=== PATIENT | female | born 1950 | race Caucasian/White ===

== ENCOUNTER 2018-04-21 14:25 | Emergency (ER) | payer MEDICARE, OTHER ==
[~2018-04-21] VITALS: Ht 162.6 cm; Wt 49.4 kg
--- OUTSIDE RECORDS SUMMARY | 2018-04-21 14:30 | XMS REPORT ---
Author Author [facility] Address Unknown Phone Unavailable Care Team Providers Care Plant Breeder Name Role Phone Unavailable Unavailable Payers Payer Name Policy Type Policy Number Effective Date Expiration Date Problems This patient has no known problems. Allergies, Adverse Reactions, Alerts Allergy Name Allergy Type Status Severity Reaction(s) Onset Date Inactive Date Treating Clinician Comments Sulfa (Sulfonamide Antibiotics) DA Active MA 2018-01-25 00:00:00 iodine DA Active SV 2018-01-25 00:00:00 aloe vera DA Active SV 2018-01-25 00:00:00 levofloxacin DA Active U 2018-01-25 00:00:00 Sulfa (Sulfonamide Antibiotics) DA Active MA 2017-02-17 00:00:00 aloe vera DA Active SV 2017-02-17 00:00:00 levofloxacin DA Active U 2017-02-17 00:00:00 iodine DA Active SV 2016-09-04 00:00:00 Medications This patient has no known medications.
--- OUTSIDE RECORDS SUMMARY | 2018-04-21 14:30 | XMS REPORT | Summary of Care ---
Author Author SHANIA Blunt, ELMER Rivera Unknown Address Unknown Phone Unavailable Care Team Providers Care Law Clerk Name Role Phone Sharmin Bowen Unavailable Unavailable FAITH Blunt, PRABHJOT Unavailable Unavailable ASHLI FAIR MD Unavailable Unavailable SHANIA DICKENS NE, ELMER Valdez Unavailable Unavailable Unavailable Unavailable Functional Status Name Dates Details Functional status health issues are not documented Status: Name Dates Details Cognitive status health issues are not documented Status: Problems Name Dates Details Benign paroxysmal positional vertigo (386.11, H81.10) Status: Active Sensorineural hearing loss, bilateral (389.18, H90.3) Status: Active Excess wax in ear (380.4, H61.20) Status: Active 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 Active DULoxetine HCl - 30 MG Oral Capsule Delayed Release Particles TAKE 1 CAPSULE DAILY * Refills: 0 Active Furosemide 20 MG Oral Tablet TAKE 1 TABLET DAILY. * Refills: 0 Active Primidone 50 MG Oral Tablet 1pill pm and 0.5 pill am * Refills: 0 Active Oxycodone-Acetaminophen 10-325 MG Oral Tablet TAKE 1 TABLET 3 TIMES DAILY. * Refills: 0 Active Biotin 5000 MCG Oral Tablet TAKE 1 TABLET DAILY * Refills: 0 Active TraMADol HCl - 50 MG Oral Tablet TAKE 1 TABLET 3 TIMES DAILY. * Refills: 0 Active TraZODone HCl - 100 MG Oral Tablet TAKE 1 TABLET AT BEDTIME. * Refills: 0 Active TiZANidine HCl - 4 MG Oral Tablet TAKE 2 TABLET DAILY * Refills: 0 Active Vitamin D3 2000 UNIT Oral Capsule TAKE 1 CAPSULE DAILY * Refills: 0 Active Vitamin B12 TABS TAKE 1 TABLET DAILY DIRECTED. * Refills: 0 Active FentaNYL 50 MCG/HR Transdermal Patch 72 Hour APPLY 1 PATCH EVERY 3 DAYS * Refills: 0 Active Fludrocortisone Acetate 0.1 MG Oral Tablet TAKE 1 TABLET DAILY * Quantity: 30 Refills: 1 ALBASHAIREH M.D., PRABHJOT * Start : 27-May-2017 Active Allergies and Adverse Reactions Name Dates Details Levaquin TABS (Allergy) Status: Active Sulfa Drugs (Allergy) Status: Active Procedures Procedure Dates Details [N] 2D Echo complete, with Doppler [id number] Date: 27-May-2017 History of Oral Surgery Tooth Extraction Completed History of Appendectomy Completed History of Hysterectomy Completed Immunization Name Dates Details Immunizations not documented Family History Name Dates Details No pertinent family history Comments: Other Status: Active Social History Name Dates Details - Status: Name Dates Details Never smoker Vital Signs Date Test Result Details [id number] BP Systolic 100 mm[Hg] Status: Comments: Location: LUE; Position: Sitting BP Diastolic 71 mm[Hg] Status: Comments: Location: LUE; Position: Sitting Height 63 in Status: Weight 112 lb Status: Body Mass Index Calculated 19.84 kg/m2 Status: Body Surface Area Calculated 1.51 m2 Status: Heart Rate 82 /min Status: Comments: Location: L Radial; Physical Findings 29 Status: Comments: Waist Circumference Results Date Description Value Details Results not documented Plan of Care Name Dates Details Planned Observations [N] 2D Echo complete, with Doppler [id number] On: 08-Jul-2017 Intent Planned Goals not documented Planned Encounters Neurology Referral Appointment; CLIFTON GUERRA1 On: 08-Jul-2017 13:30 Appointment; ELMER JAUREGUI M.D. On: 08-Jul-2017 14:20 Appointment; GENESIS MARIA M.D. On: 23-Dec-2017 14:45 Instructions Name Dates Details Instructions not documented Encounters Appointment; EVA WARD M.D. Encounter Diagnosis: Problem not documented On: 04-Jun-2015 14:45 Appointment; ELMER JAUREGUI M.D. Encounter Diagnosis: Problem not documented On: 27-May-2017 14:30
--- OUTSIDE RECORDS SUMMARY | 2018-04-21 14:30 | XMS REPORT | Summary of Care ---
Author Author [facility] Organization [facility] Address Unknown Phone Unavailable Encounter JBAIER Marc(EDVIN) [id number] Date(s): 11/03/17 - 11/03/17 [facility] [address] [place] [address]- [facility] [phone] Discharge Disposition: Home or Self Care Attending Physician: Andrés Anderson MD Vital Signs Most recent to 1 oldest [Reference Range]: Height 162.56 cm (11/03/17 10:36 AM) Blood Pressure 99/71 mmHg [90-140/60-90 mmHg] (11/03/17 10:36 AM) Respiratory Rate 16 BRMIN [14-20 BRMIN] (11/03/17 10:36 AM) Peripheral Pulse 66 bpm Rate [60-100 bpm] (11/03/17 10:36 AM) Weight 51 kg (11/03/17 10:36 AM) Body Mass Index 19.3 m2 (11/03/17 10:36 AM) Problem List Condition Effective Dates Status Health Status Informant H/O multiple Resolved sclerosis(Confirmed) Low blood Resolved pressure(Confirmed) Allergies, Adverse Reactions, Alerts Substance Reaction Severity Status sulfa drugs Active Levaquin Active Medications acetaminophen-oxycodone 325 mg-10 mg oral tablet 2 tab, PO, Q6H, PRN for pain, 0 Refill(s) Start Date: 11/03/17 Stop Date: 11/10/17 Status: Ordered aspirin 81 mg tablet, enteric coated 81 mg=1 tab, PO, Daily, # 90 tab, 3 Refill(s) Start Date: 11/03/17 Status: Ordered DULoxetine 60 mg, PO, Daily, 0 Refill(s) Start Date: 11/03/17 Status: Ordered furosemide 20 mg oral tablet 20 mg=1 tab, PO, Daily, 0 Refill(s) Start Date: 11/03/17 Status: Ordered gabapentin 300 mg, PO, TID, 0 Refill(s) Start Date: 11/03/17 Status: Ordered GoLYTELY oral powder for reconstitution 240 mL, PO, Q10Min, # 82750 mL, 0 Refill(s), [id number] Start Date: 11/03/17 Stop Date: 11/05/17 Status: Ordered Home Medication See Instructions, Bi-Est/Progesterone, Refill(s) 0 Start Date: 11/03/17 Status: Ordered Home Medication Refill(s) 0 Start Date: 11/03/17 Status: Ordered Linzess 290 mcg oral capsule 290 microgram=1 cap, PO, Daily, 30 minutes prior to the first meal of the day, # 90 cap, 1 Refill(s), [id number] Start Date: 11/03/17 Stop Date: 05/02/18 Status: Ordered methadone 10 mg oral tablet 10 mg=1 tab, PO, Q8H, 0 Refill(s) Start Date: 11/03/17 Stop Date: 11/10/17 Status: Ordered MiraLax oral powder for reconstitution 17 gm, PO, BID, X 31 day, # 1054 gm, 1 Refill(s), [id number] Start Date: 11/03/17 Stop Date: 01/04/18 Status: Ordered Movantik 25 mg oral tablet 25 mg=1 tab, PO, QAM, # 90 tab, 1 Refill(s), [id number] Start Date: 11/03/17 Stop Date: 05/02/18 Status: Ordered pravastatin 20 mg oral tablet 20 mg=1 tab, PO, Daily, 0 Refill(s) Start Date: 11/03/17 Status: Ordered primidone 50 mg oral tablet 50 mg=1 tab, PO, TID, 0 Refill(s) Start Date: 11/03/17 Status: Ordered tizanidine 4 mg oral tablet 8 mg=2 tab, PO, Q8H, 0 Refill(s) Start Date: 11/03/17 Status: Ordered trazodone 100 mg oral tablet 100 mg=1 tab, PO, TID, 0 Refill(s) Start Date: 11/03/17 Status: Ordered Vitamin B12 0 Refill(s) Start Date: 11/03/17 Status: Ordered Vitamin D3 0 Refill(s) Start Date: 11/03/17 Status: Ordered Results No data available for this section Immunizations No data available for this section Procedures Procedure Date Related Diagnosis Body Site Status Cholecystectomy Completed Colonoscopy Completed Total hysterectomy Completed Social History Social History Type Response Alcohol Past Smoking Status Current some day smoker; Ready to change: Yes; Concerns about tobacco use in household: Yes; Exposure to Tobacco Smoke None; Cigarette Smoking Last 365 Days Yes; Reg Smoking Cessation Counseling Yes entered on: 11/03/17 Assessment and Plan No data available for this section
--- OUTSIDE RECORDS SUMMARY | 2018-04-21 14:30 | XMS REPORT | Summary of Care ---
Author Author [facility] Outpatient Imaging [facility] [place] Address Unknown Phone Unavailable Encounter HQ Monico(FIN) [id number] Date(s): 07/27/17 - 07/27/17 [facility] Outpatient Imaging [place] [address] [place] [phone] Encounter Diagnosis Low back pain (Final) - 07/31/17 Cervicalgia (Final) - Sacrococcygeal disorders, not elsewhere classified (Final) - Pain in joints of right hand (Final) - Pain in joints of left hand (Final) - Pain in right ankle and joints of right foot (Final) - Pain in left ankle and joints of left foot (Final) - Other intervertebral disc degeneration, lumbosacral region (Final) - Spondylosis without myelopathy or radiculopathy, lumbar region (Final) - Calcaneal spur, left foot (Final) - Calcaneal spur, right foot (Final) - Spinal stenosis, cervical region (Final) - Discharge Disposition: Home or Self Care Attending Physician: Anna Craft MD Vital Signs No data available for this section Problem List No data available for this section Allergies, Adverse Reactions, Alerts No data available for this section Medications No data available for this section Results No data available for this section Immunizations No data available for this section Procedures No data available for this section Social History No data available for this section Assessment and Plan No data available for this section
--- OUTSIDE RECORDS SUMMARY | 2018-04-21 14:30 | XMS REPORT | Summary of Care ---
Author Author [facility] [place] Organization [facility] [place] Address Unknown Phone Unavailable Encounter HQ Encntr_alias([facility]) [id number] Date(s): 08/14/17 - 08/14/17 [facility] - [place] [address] [place] [phone] Discharge Disposition: Home or Self Care Attending Physician: Deshawn Tejada MD Vital Signs No data available for [...]
--- OUTSIDE RECORDS SUMMARY | 2018-04-21 14:30 | XMS REPORT | Continuity of Care Document ---
Author Author Myra hernandes Organization Interface Address Unknown Phone Unavailable Problems Problem Status Onset Date Classification Date Reported Comments Source DSU- COLON SCREENING , CONSTIPATION Active 11/05/[address] [facility] NEW PT CONSULT Active 09/29/[address] [facility] Low back pain 08/01/2017 11/02/2017 NICOLA Hernandes M25.50 - PAIN IN UNSPECIFIED JOINT Active 07/27/2017 NICOLA Hernandes G35 - MULTIPLE SCLEROSIS Active 01/28/2016 NICOLA [place] Cervicalgia 11/02/2017 NICOLA Hernandes Sacrococcygeal disorders, not elsewhere classified 11/02/2017 [facility] Pain in joints of right hand 11/02/2017 [facility] [place] Pain in joints of left hand 11/02/2017 [facility] [place] Pain in right ankle and joints of right foot 11/02/2017 [facility] [place] Pain in left ankle and joints of left foot 11/02/2017 [facility] [place] Other intervertebral disc degeneration, lumbosacral region 11/02/2017 [facility] [place] Spondylosis without myelopathy or radiculopathy, lumbar region 11/02/2017 [facility] [place] Calcaneal spur, left foot 11/02/2017 [facility] Calcaneal spur, right foot 11/02/2017 [facility] [place] Spinal stenosis, cervical region 11/02/2017 [facility] H/O multiple sclerosis Resolved Problem 11/06/[address] [facility] Low blood pressure Resolved Problem 11/06/[address] [facility] MS Active Problem 06/10/2016 [facility] Pain of multiple sites Active Diagnosis 06/10/2016 [facility] MULTIPLE SCHLEROSIS Active [facility] MEDICAL EXAM W/ Active [facility] Medications Medication Details Route Status Patient Instructions Ordering Provider Order Date Source POLYETHYLENE GLYCOL 3350 142 MG/ML Oral Solution [Miralax] 17 gm, PO, BID, X 31 day, # 1054 gm, 1 Refill(s), Pharmacy: [facility]/pharmacy #[id number] Active 11/03/[address] [facility] GoLYTELY oral powder for reconstitution 240 mL, PO, Q10Min, # 89077 mL, 0 Refill(s), Pharmacy: [facility]/pharmacy #[id number] Active 11/03/[address] [facility] naloxegol 25 MG Oral Tablet [Movantik] 25 mg=1 tab, PO, QAM, # 90 tab, 1 Refill(s), Pharmacy: [facility]/pharmacy #[id number] Active 11/03/[address] [facility] linaclotide 0.29 MG Oral Capsule [Linzess] 290 microgram=1 cap, PO, Daily, 30 minutes prior to the first meal of the day, # 90 cap, 1 Refill(s), [id number] Active 11/03/[address] [facility] Trazodone Hydrochloride 100 MG Oral Tablet 100 mg=1 tab, PO, TID, 0 Refill(s) Active 11/03/[address] [facility] methadone 10 mg oral tablet 10 mg=1 tab, PO, Q8H, 0 Refill(s) Active 11/03/[address] [facility] Acetaminophen 325 MG / Oxycodone Hydrochloride 10 MG Oral Tablet 2 tab, PO, Q6H, PRN for pain, 0 Refill(s) Active 11/03/[address] [facility] Home Medication See Instructions, Bi-Est/Progesterone, Refill(s) 0 Active 11/03/[address] [facility] duloxetine 60 mg, PO, Daily, 0 Refill(s) Active 11/03/[address] [facility] gabapentin 300 mg, PO, TID, 0 Refill(s) Active 11/03/[address] [facility] primidone 50 mg oral tablet 50 mg=1 tab, PO, TID, 0 Refill(s) Active 11/03/[address] [facility] pravastatin 20 mg oral tablet 20 mg=1 tab, PO, Daily, 0 Refill(s) Active 11/03/[address] [facility] Furosemide 20 MG Oral Tablet 20 mg=1 tab, PO, Daily, 0 Refill(s) Active 11/03/[address] [facility] Vitamin B12 0 Refill(s) Active 11/03/[address] [facility] Aspirin 81 MG Enteric Coated Tablet 81 mg=1 tab, PO, Daily, # 90 tab, 3 Refill(s) Active 11/03/[address] [facility] Vitamin D3 0 Refill(s) Active 11/03/[address] [facility] tizanidine 4 mg oral tablet 8 mg=2 tab, PO, Q8H, 0 Refill(s) Active 11/03/[address] [facility] Ultram 1 tab(s) orally Active 50 mg orally tid prn [facility] 02/25/2016 [facility] carvedilol Unknown NA Active [facility] Lasix Unknown NA Active [facility] Allergies, Adverse Reactions, Alerts Substance Category Reaction Severity Reaction type Status Date Reported Comments Source Sulfa Adverse Reaction Info Not Available Adverse Reaction Active 02/25/2016 [facility] sulfa drugs Assertion Drug allergy Active [facility] Levaquin Assertion Drug allergy Active [facility] Immunizations Immunization Date Given Site Status Last Updated Comments Source Results Order Name Results Value Reference Range Date Interpretation Comments Source Brain w/wo contrast MRI Brain w/wo contrast MRI PATIENT NAME: KIMBERLY PARK : 1950; Age: 66 years y/o Female MR: [id number] STUDY: Brain w/wo contrast MRI 08/14/2017 11:38 AM CDT ORDERING PHYSICIAN: Deshawn Tejada MD CLINICAL INDICATION: R41.3 Other amnesia - R41.3 Other amnesia; COMPARISON: 04/18/2014 brain magnetic resonance imaging TECHNIQUE : Multiplanar imaging of the brain was obtained both prior to and after uncomplicated IV administration of 10 mL Dotarem. FINDINGS: BRAIN PARENCHYMA: There is no hemorrhage, mass lesion, extra axial collection, cerebral edema, or mass effect. Diffusion sequences are normal. Brain volume is age-appropriate without substantial volume loss. There are minimal, nonspecific signal abnormalities in the periventricular white matter and basal ganglia. There are no cortical signal abnormalities. There is bilateral pontine signal abnormality.The cerebellar tonsils are above foramen magnum. The pituitary gland is age-appropriate. There is no abnormal enhancement. CEREBELLOPONTINE REGIONS AND SKULL BASE: The cerebellopontine angles appear unremarkable. No skull base abnormality is seen. VENTRICLES/SULCI/CISTERNS: The ventricles are normal in size and configuration. The basal cisterns are patent. VISUALIZED VESSELS: Major intracranial flow voids are preserved. ORBITS, VISUALIZED PARANASAL SINUSES AND MASTOIDS: Paranasal sinuses are clear. The mastoid air cells are clear. No orbital pathology is seen. IMPRESSION: 1. No substantial cortical volume loss 2. Stable chronic microvascular ischemic changes most evident in the too 3. No substantial cortical volume loss 08/14/2017 - - Read by: Ruben Peck MD Dictated Date/time: 08/14/17 13:59 Electronically Signed by: Ruben Peck MD 08/14/17 15:55 FINAL REPORT [facility]ICOL[facility] [place] Pelvis AP DX Pelvis AP DX EXAM: XR PELVIS AP 1 VIEW DATE: 07/27/2017 11:46 AM CDT INDICATION: - M25.50 Pain in unspecified joint COMPARISON: None TECHNIQUE: AP pelvis -- single view. FINDINGS: No fracture, periosteal reaction, or erosions identified. Joint alignment is normal. Mild degenerative changes of the SI joints noted. Degenerative disc disease and facet arthropathy of the lower lumbar spine noted. Soft tissues are unremarkable. IMPRESSION: Mild degenerative changes of the SI joints. Degenerative disc disease and facet arthropathy of the lower lumbar spine. 07/27/2017 - - Read by: Delonte Oquendo MD Dictated Date/time: 07/27/17 12:30 Electronically Signed by: Delonte Oquendo MD 07/27/17 12:31 FINAL REPORT MANUELITO Hernandes Hand 3 views Bilateral DX Hand 3 views Bilateral DX EXAM: XR BILATERAL HAND 3 VIEWS DATE: 07/27/2017 11:45 AM CDT INDICATION: - M25.50 Pain in unspecified joint COMPARISON: None available TECHNIQUE: Bilateral PA, lateral, and oblique radiographs of hands. FINDINGS: No fracture, periosteal reaction, or erosions identified. Joint alignment is normal. Soft tissues are unremarkable. IMPRESSION: No radiographic evidence of inflammatory arthropathy identified. 07/27/2017 - - Read by: Delonte Oquendo MD Dictated Date/time: 07/27/17 12:32 Electronically Signed by: Delonte Oquendo MD 07/27/17 12:34 FINAL REPORT NICOLA Hernandes Sacroiliac joints series DX Sacroiliac joints series DX EXAM: XR SACROILIAC JOINT 3 VIEWS DATE: 07/27/2017 11:46 AM CDT INDICATION: - M25.50 Pain in unspecified joint COMPARISON: None available TECHNIQUE: AP, RPO and LPO radiographs of the sacroiliac joints FINDINGS: No fracture, periosteal reaction, or erosions identified. Joint alignment is normal. Bilateral SI joint osteophytes noted. No periarticular erosions of the SI joints identified. Degenerative disc disease and facet arthropathy at the lower lumbar spine noted. Soft tissues are unremarkable. IMPRESSION: Mild degenerative changes of the SI joints. No radiographic evidence of sacroiliitis identified. 07/27/2017 - - Read by: Delonte Oquendo MD Dictated Date/time: 07/27/17 12:29 Electronically Signed by: Delonte Oquendo MD 07/27/17 12:30 FINAL REPORT OP[facility] Spine lumbar 2 or 3 views DX Spine lumbar 2 or 3 views DX EXAM: XR LUMBAR SPINE 3 VIEWS DATE: 07/27/2017 11:46 AM CDT INDICATION: - M25.50 Pain in unspecified joint COMPARISON: TECHNIQUE: Lumbar spine -- 3 views FINDINGS: No spondylolisthesis present. Vertebral body heights are normal. No lumbar spine fracture is identified. Moderate degenerative disc disease present at L5-S1. Mild facet arthropathy at the lower lumbar spine. Gallbladder has been removed. Soft tissues are unremarkable. IMPRESSION: Moderate degenerative disc disease at L5-S1. Mild lower lumbar spine facet arthropathy. 07/27/2017 - - Read by: Delonte Oquendo MD Dictated Date/time: 07/27/17 12:26 Electronically Signed by: Delonte Oquendo MD 07/27/17 12:29 FINAL REPORT NICOLA Hernandes Foot 3 views bilateral DX Foot 3 views bilateral DX EXAM: XR BILATERAL FOOT 3 VIEWS DATE: 07/27/2017 11:45 AM CDT INDICATION: - M25.50 Pain in unspecified joint COMPARISON: None available TECHNIQUE: Right foot -- 3 views Left foot -- 3 views FINDINGS: No fracture, periosteal reaction, or erosions identified. Joint alignment is normal. Tiny bilateral plantar calcaneal enthesophyte present. Soft tissues are unremarkable. IMPRESSION: Minimal bilateral calcaneal enthesopathy. 07/27/2017 - - Read by: Delonte Oquendo MD Dictated Date/time: 07/27/17 12:31 Electronically Signed by: Delonte Oquendo MD 07/27/17 12:32 FINAL REPORT [facility] [place] Spine cervical series DX Spine cervical series DX EXAM: XR CERVICAL SPINE 5 VIEWS DATE: 07/27/2017 11:46 AM CDT INDICATION: - M25.50 Pain in unspecified joint COMPARISON: None TECHNIQUE: AP, lateral, open-mouth odontoid, RPO and LPO radiographs of the cervical spine show from the skull base through T1. FINDINGS: There is straightening of the cervical lordosis. Minimal disc space narrowing noted at C6-7 and C5-6. Minimal marginal osteophytes noted in the midcervical spine. Mild neuroforamina narrowing noted C3-C6 due to uncovertebral joint hypertrophy and posterior osteophyte formation. No prevertebral or paraspinous soft tissue abnormality is identified. IMPRESSION: 1. Mild degenerative changes in the mid and lower cervical spine. 2. Straightening of the cervical lordosis. 07/27/2017 - - Read by: Minnie Mcnair MD Dictated Date/time: 07/27/17 12:25 Electronically Signed by: Minnie Mcnair MD 07/27/17 12:53 FINAL REPORT NICOL[facility] [place] Spine lumbar wo contrast MRI Spine lumbar wo contrast MRI MRI LUMBAR SPINE WITHOUT CONTRAST COMPARISON: No prior exam. Clinical: Low back pain radiating to the right leg. Multiple sclerosis. TECHNIQUE: Sagittal T1, sagittal T2 with fat saturation, axial T1 and axial T2 images were obtained. No intravenous gadolinium was given. FINDINGS: The paravertebral soft tissues are normal. The conus medullaris terminates at the L2 level. T11-T12 mild ligamenta flava redundancy is present. T12-L1: Unremarkable. L1-L2: Unremarkable. L2-L3: Unremarkable. L3-L4: Approximately 1 mm disc bulge is seen without central canal stenosis. Mild left foraminal stenosis is present due to disc bulge encroachment. L4-L5: Moderate ligamenta flava redundancy is present. Approximately 2 mm disc bulge with posterior annular fissure is seen with mild central canal stenosis. There is [id number] bilateral foraminal stenosis due to disc bulge encroachment without mass effect on exiting nerve roots. L5-S1: Moderate disc narrowing is present with small posterior annular fissure. No thecal sac stenosis. Moderate to severe right foraminal stenosis and moderate left foraminal stenosis is present due to foraminal osteophytes. IMPRESSION: 1. Multilevel disc degenerative disease and spondylosis. 2. L4-L5 moderate degenerative changes with mild central canal stenosis and [id number] foraminal stenosis. 3. L5-S1 moderate to severe bilateral foraminal stenosis. 01/28/2016 - - Read by: Ryan Watkins MD Dictated Date/time: 01/28/16 16:42 Electronically Signed by: Ryan Watkins MD 01/28/16 17:04 FINAL REPORT NICOLA [place] Vital Signs Vital Sign Value Date Comments Source Height 162.56 cm 11/03/[address] [facility] BMI Calculated 19.3 11/03/[address] [facility] Weight 51 11/03/[address] [facility] Heart Rate 66 11/03/[address] [facility] Systolic (mm Hg) 99 11/03/[address] [facility] Diastolic (mm Hg) 71 11/03/[address] [facility] Respitory Rate 16 11/03/[address] [facility] Systolic (mm Hg) 127 02/25/2016 [facility] Weight 116 02/25/2016 [facility] Diastolic (mm Hg) 73 02/25/2016 [facility] Encounters Location Location Details Encounter Type Encounter Number Reason For Visit Attending Provider ADM Date DC Date Status Source [facility] [place] [facility] [id number] Jordan Monge 01/28/2016 01/29/2016 NICOLA [place] [facility] Unknown [id number] 02/25/2016 02/25/2016 [facility] [place] [facility] [id number] Anna Bryant 07/27/2017 07/28/2017 NICOLA Hernandes [facility] [place] [facility] [id number] Deshawn Tejada 08/14/2017 08/15/2017 [facility] Outpatient [id number] Andrés Anderson 11/03/2017 11/04/[address] [facility] Procedures Procedure Code Date Perfomer Comments Source Cholecystectomy [id number] [facility] Colonoscopy [id number] [facility] Total hysterectomy [id number] [facility]
--- OUTSIDE RECORDS SUMMARY | 2018-04-21 14:30 | XMS REPORT ---
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 Name Role Phone CHERIE QUIROZ CP Unavailable Allergies, Adverse Reactions, Alerts Substance Reaction Event Type Sulfa Info Not Available Drug Allergy Levaquin Info Not Available Drug Allergy Encounters Encounter Location Date Unknown [facility] Feb 25, 2016 Problems Problem Type Condition ICD-9 Code Onset Dates Condition Status Problem MS (multiple sclerosis) G35 Active Assessment Pain of multiple sites R52 Active Problem Pain of multiple sites R52 Active Assessment MS (multiple sclerosis) G35 Active Medications Medication Code System Code Instructions Start Date End Date Status Dosage carvedilol MULTUM 94428 Active Unknown Ultram MULTUM 4526 50 mg orally tid prn Feb 25, 2016 Active 1 tab(s) Lasix MULTUM 1714 Active Unknown Social History Social History Element Qualifiers Date Reported no known addiction no. Feb 25, 2016 Children . 2 Feb 25, 2016 Education . Degree Feb 25, 2016 yes. Feb 25, 2016 Recreational drug use no. Feb 25, 2016 Tobacco Use: . Status: Never Smoker Feb 25, 2016 Alcohol no. Feb 25, 2016 Family history Qualifier Description Comment Date Reported Maternal Grand Mother Comment not available Feb 25, 2016 Siblings Comment not available Feb 25, 2016 Children Comment not available Feb 25, 2016 Father Comment not available Feb 25, 2016 Maternal aunt Comment not available Feb 25, 2016 Mother Comment not available Feb 25, 2016 Paternal uncle Comment not available Feb 25, 2016 Maternal uncle Comment not available Feb 25, 2016 Paternal aunt Comment not available Feb 25, 2016 Other Comment not available Feb 25, 2016 Paternal Grand Mother Comment not available Feb 25, 2016 Maternal Grand Father Comment not available Feb 25, 2016 Paternal Grand Father Comment not available Feb 25, 2016 Vital Signs Date/Time: Feb 25, 2016 Blood Pressure Systolic 127 mm Hg Weight 116 lbs Blood Pressure Diastolic 73 mm Hg Summary Purpose [employer] Submission
--- OUTSIDE RECORDS SUMMARY | 2018-04-21 14:30 | XMS REPORT | Summary of Care ---
Author Author [facility] [place] Organization [facility] [place] Address Unknown Phone Unavailable Encounter HQ Encntr_alias(FIN) [id number] Date(s): 01/28/16 - 01/28/16 [facility] [place] [address] [place] [phone] Discharge Disposition: Home or Self Care Attending Physician: Jordan Monge MD Vital Signs No data available for [...]
[2018-04-21] MEDS ORDERED: CITALOPRAM HBR20 MG PO (18:32)
[2018-04-21] MEDS ORDERED: PRAVASTATIN SOD20 MG PO (18:32)
[2018-04-21] MEDS ORDERED: PRIMIDONE50 MG PO (18:32)
[2018-04-21] MEDS ORDERED: GABAPENTIN400 MG PO (18:32)
[2018-04-21] MEDS ORDERED: TIZANIDINE HCL4 MG PO (18:32)
[2018-04-21] MEDS ORDERED: METHADONE HCL10 MG PO (18:32)
[2018-04-21] MEDS ORDERED: ASPIRIN EC81 MG PO (18:32)
[2018-04-21] MEDS ORDERED: TRAZODONE HCL50 MG PO (18:32)
[2018-04-21] MEDS ORDERED: OXYCODONE-ACET1 EAC1 PO (18:32)
[2018-04-21] MEDS ORDERED: NEOMYCIN/POLYMYXIN/BACITRACIN 15 GM TUBE TOP ONE (19:15)
--- NOTE | 2018-04-21 20:10 | Diagnostic Imaging Report ---
EXAMINATION: CHEST 2 VIEWS INDICATION: ^pain with inspiration COMPARISON: None FINDINGS: PA and lateral views TUBES and LINES: None. LUNGS: Lungs are well inflated. Bilateral peribronchial cuffing, especially in the left lung. There is no evidence of pneumonia or pulmonary edema. PLEURA: No pleural effusion or pneumothorax. HEART AND MEDIASTINUM: The cardiomediastinal silhouette is unremarkable. There are atherosclerotic calcifications within the aorta. BONES AND SOFT TISSUES: No acute osseous lesion. Soft tissues are unremarkable. UPPER ABDOMEN: No free air under the diaphragm. IMPRESSION: Bilateral peribronchial cuffing, which could represent viral etiology or reactive airway disease. Signed by: Dr. Kailash Wilkes M.D. on 04/21/2018 8:06 PM
[2018-04-21 21:18] VITALS: BP 126/89
== END 2018-04-21 21:20 | disposition home or self-care (01) ==
LOC: ER 14:25
DX: T21.23XA Burn of second degree of upper back, initial encounter (principal); T21.14XA Burn of first degree of lower back, initial encounter; W29.2XXA Contact with other powered household machinery, initial encounter; Y92.008 Other place in unspecified non-institutional (private) residence as the place of occurrence of the external cause; F03.90 Unspecified dementia, unspecified severity, without behavioral disturbance, psychotic disturbance, mood disturbance, and anxiety; M79.7 Fibromyalgia; G35 Multiple sclerosis
CPT/HCPCS: 71046; 99283

== ENCOUNTER → 2022-01-15 | Outpatient (CLI) | payer MEDICARE, OTHER ==
[~2022-01-15] MED LIST: ASPIRIN EC81 MG PO; CITALOPRAM HBR20 MG PO; GABAPENTIN400 MG PO; METHADONE HCL10 MG PO; OXYCODONE-ACET1 EAC1 PO; PRAVASTATIN SOD20 MG PO; PRIMIDONE50 MG PO; TIZANIDINE HCL4 MG PO; TRAZODONE HCL50 MG PO
== END ==
LOC: RAD 12:31
PROVIDERS: ATTEND Internal Medicine
DX: I25.10 Atherosclerotic heart disease of native coronary artery without angina pectoris (principal)
CPT/HCPCS: 71046

== ENCOUNTER → 2022-05-22 | Outpatient (CLI) | payer MEDICARE, OTHER | LOC: RAD 10:59 | PROVIDERS: ATTEND Internal Medicine | DX: S09.90XA Unspecified injury of head, initial encounter (principal); S43.491A Other sprain of right shoulder joint, initial encounter; S73.101D Unspecified sprain of right hip, subsequent encounter; Z91.81 History of falling | CPT/HCPCS: 71046 ==

== ENCOUNTER → 2022-05-28 | Outpatient (CLI) | payer MEDICARE, OTHER | LOC: CT 16:11 | PROVIDERS: ATTEND Internal Medicine | DX: S09.90XA Unspecified injury of head, initial encounter (principal); S43.491A Other sprain of right shoulder joint, initial encounter; S73.101D Unspecified sprain of right hip, subsequent encounter; Z91.81 History of falling | CPT/HCPCS: 70450 ==

== ENCOUNTER 2022-06-18 09:51 | Outpatient (RCR) | payer MEDICARE, OTHER | END 2022-06-24 | LOC: PT 09:51 | PROVIDERS: ATTEND Internal Medicine | DX: S09.90XA Unspecified injury of head, initial encounter (principal); S43.491A Other sprain of right shoulder joint, initial encounter; S73.101D Unspecified sprain of right hip, subsequent encounter; W10.8XXS Fall (on) (from) other stairs and steps, sequela; Z91.81 History of falling ==

== ENCOUNTER 2022-06-25 08:46 | Outpatient (RCR) | payer MEDICARE, OTHER | END 2022-07-25 | LOC: PT 08:46 | PROVIDERS: ATTEND Internal Medicine | DX: R42 Dizziness and giddiness (principal); R26.89 Other abnormalities of gait and mobility; M15.8 Other polyosteoarthritis; W10.8XXS Fall (on) (from) other stairs and steps, sequela ==

== ENCOUNTER → 2022-06-30 | Outpatient (CLI) | payer MEDICARE, OTHER | LOC: RAD 13:17 | PROVIDERS: ATTEND Internal Medicine | DX: J44.9 Chronic obstructive pulmonary disease, unspecified (principal) | CPT/HCPCS: 71046 ==

== ENCOUNTER → 2022-08-28 | Outpatient (CLI) | payer MEDICARE, OTHER | LOC: MAMMO 15:02 | PROVIDERS: ATTEND Internal Medicine | DX: Z12.31 Encounter for screening mammogram for malignant neoplasm of breast (principal); M85.88 Other specified disorders of bone density and structure, other site; R07.9 Chest pain, unspecified | CPT/HCPCS: 71046; 77067; 77080 ==

== ENCOUNTER → 2023-11-17 | Outpatient (REF) | payer MEDICARE, OTHER ==
[~2023-11-17] MED LIST changes: +BIOTIN10000 MCG PO; +HYDROCODON-ACE1 EA12 PO; +LASIX20 MG PO; +LOSARTAN POTASS25 MG PO; +PANTOPRAZOLE SO40 MG PO; +SUCRALFATE1 GM PO; +VITAMIN B-121000 MCG PO; +VITAMIN C1000 MG PO; +VITAMIN D350 MCG PO; +ZOLPIDEM TARTRAT5 MG PO
== END ==
LOC: US 10:15
PROVIDERS: ATTEND Nurse Practitioner
DX: K59.09 Other constipation (principal); K29.60 Other gastritis without bleeding; I10 Essential (primary) hypertension; Z86.010 Personal history of colon polyps
CPT/HCPCS: 76700

== ENCOUNTER 2023-12-08 13:17 | Emergency (ER) | payer MEDICARE, OTHER ==
[~2023-12-08] VITALS: Ht 162.6 cm; Wt 49.4 kg
[2023-12-08 13:26] VITALS: TEMP 98.3
[2023-12-08 13:58] LABS: BASOPHILS # (AUTO) 0.1 (0.0-0.1); BASOPHILS % 0.8 % (0.0-1.0); EOSINOPHILS # (AUTO) 0.2 (0.0-0.4); EOSINOPHILS % 2.8 % (0.0-6.0); HEMATOCRIT 38.4 % (34.2-44.1); HEMOGLOBIN 12.2 g/dL (12.0-16.0); LYMPHOCYTES # (AUTO) 1.7 (1.0-3.2); MEAN CORPUSCULAR HEMOGLOBIN 33.2 pg (28-32); MEAN CORPUSCULAR HGB CONC 31.8 g/dL (31-35); MEAN CORPUSCULAR VOLUME 104.3 fL (81-99); MONOCYTES # (AUTO) 0.5 (0.2-0.8); NEUTROPHILS # (AUTO) 3.5 (2.1-6.9); NEUTROPHILS % 59.1 % (38.7-80.0); PLATELET COUNT 225 x10e3/uL (140-360); RED BLOOD COUNT 3.68 x10e6/uL (3.6-5.1); RED CELL DISTRIBUTION WIDTH 13.1 % (11.7-14.4); WHITE BLOOD COUNT 5.99 x10e3/uL (4.8-10.8)
[2023-12-08 14:00] LABS: INR 0.94
[2023-12-08 14:01] LABS: PARTIAL THROMBOPLASTIN TIME 25.7 seconds (23.8-35.5)
[2023-12-08] MEDS: ONDANSETRON HCL INJ 2MG/ML 2ML 2 MG/ML VIAL IV STA (14:03)
[2023-12-08] MEDS: Morphine 4mg INJECTION 4 MG/ML INJ IV STA (14:03)
[2023-12-08] MEDS: SODIUM CHLORIDE 0.9% 1000ML 1,000 ML IV STA (14:04)
[2023-12-08 14:11] LABS: ALBUMIN 4.5 g/dL (3.5-5.0); ANION GAP 13.2 mmol/L (8-16); BILIRUBIN,TOTAL 0.7 mg/dL (0.2-1.2); CALCIUM 9.3 mg/dL (8.4-10.2); CREATININE, SERUM 1.06 mg/dL (0.57-1.11); MAGNESIUM 2.1 MG/DL (1.3-2.1); POTASSIUM 4.2 mmol/L (3.5-5.1); TOTAL PROTEIN 6.7 g/dL (6.5-8.1)
[2023-12-08 14:17] LABS: TROPONIN I 0.002 ng/mL (0-0.300)
[2023-12-08 14:22] LABS: CLARITY,URINE CLEAR (CLEAR); COLOR,URINE YELLOW (YELLOW); PH,URINE 5.5 (5 - 7)
[2023-12-08 14:23] LABS: BILIRUBIN,URINE NEGATIVE (NEGATIVE); GLUCOSE, URINE NEGATIVE (NEGATIVE); KETONES,URINE NEGATIVE (NEGATIVE); LEUKOCYTE ESTERASE ,URINE TRACE (NEGATIVE); NITRITE,URINE NEGATIVE (NEGATIVE); PROTEIN,URINE DIPSTICK NEGATIVE (NEGATIVE); URINE UROBILINOGEN 0.2 mg/dL (0.2 - 1)
[2023-12-08 14:26] LABS: BACTERIA,URINE RARE /HPF; EPITHELIAL CELLS,URINE RARE /LPF; RBC,URINE 0-5 /HPF (0-5); WBC,URINE (MAN) 0-5 /HPF (0-5)
[2023-12-08] MEDS ORDERED: IOPAMIDOL 370 MG/ML 100 ML INFUS..BTL INJ ONE (14:30)
[2023-12-08] MEDS: HYDROCODONE/APAP 10MG-325MG TAB PO ONE (16:36)
[2023-12-08] MEDS: ONDANSETRON HCL 4 MG ORAL DISINTEGRATING TAB PO ONE (16:37)
[2023-12-08 17:17] VITALS: PULSE 76; RESP 18; O2SAT 100
== END 2023-12-08 18:38 | disposition home or self-care (01) ==
LOC: ER 13:24
DX: K59.00 Constipation, unspecified (principal); K43.9 Ventral hernia without obstruction or gangrene; I10 Essential (primary) hypertension; G35 Multiple sclerosis; F03.90 Unspecified dementia, unspecified severity, without behavioral disturbance, psychotic disturbance, mood disturbance, and anxiety; M79.7 Fibromyalgia; H54.62 Unqualified visual loss, left eye, normal vision right eye
CPT/HCPCS: 36415; 71045; 74176; 80053; 81001; 82550; 83690; 83735; 84484; 85025; 85610; 85730; 93005; 99284; J2270; J2405; J2470; J7030; Q9967; Q0162